=== PATIENT | female | born 1995 | race African-American/Black ===

== ENCOUNTER 2017-11-29 18:10 | Emergency (ER) | payer BC ==
[~2017-11-29] VITALS: Ht 160 cm; Wt 82.7 kg
[2017-11-29 18:22] VITALS: BP 135/75; TEMP 99.7
[2017-11-29 19:07] LABS: COLLECTION METHOD CLEAN CATCH
[2017-11-29 19:07] LABS: BASO % 0.3 % (0.0-2.0); EOS % 0.3 % (0-4.0); GRAN # 6.6 (1.4-6.5); GRAN % 68.6 % (42.2-75.2); HEMATOCRIT 37.7 % (37.0-47.0); HEMOGLOBIN 12.8 g/dl (12.5-16.0); LYMPH # 2.1 (1.2-3.4); LYMPH % 21.9 % (20.0-51.0); MEAN CELL VOLUME 90 fl (80.0-100.0); MEAN CORPUSCULAR HEMOGLOBIN 30 pg (27.0-31.0); MEAN CORPUSCULAR HGB CONC 34 g/dl (33.0-37.0); MEAN PLATELET VOLUME 8.6 fl (7.4-10.4); MONO # 0.8 (0.1-0.6); MONO % 8.6 % (1.7-9.3); PLATELET COUNT 401 K/mm3 (130-400); RED BLOOD COUNT 4.21 M/mm3 (4.10-5.30); REDCELL DISTRIBUTION WIDTH-CV 13.9 % (11.5-14.5)
[2017-11-29 19:12] LABS: PH 6 (5-8); SQUAMOUS EPITHELIAL None Seen /hpf; URINE APPEARANCE Clear; URINE BACTERIA None Seen /hpf; URINE BILIRUBIN Negative (NEGATIVE); URINE BLOOD Negative (NEGATIVE); URINE COLOR Yellow; URINE GLUCOSE Negative (NEGATIVE); URINE KETONE Negative (NEGATIVE); URINE LEUKOCYTE ESTERASE Negative (NEGATIVE); URINE NITRATE Negative (NEGATIVE); URINE PROTEIN(semi-quant) Negative (NEGATIVE); URINE RBC 0-2 /hpf; URINE UROBILINOGEN Negative (NEGATIVE)
[2017-11-29 19:16] LABS: ALBUMIN 4.3 gm/dL (3.5-5.0); BILIRUBIN,TOTAL 0.2 mg/dL (0.0-1.0); CALCIUM 9.5 mg/dL (8.4-10.2); CREATININE, serum 0.81 mg/dL (0.52-1.25); POTASSIUM 3.6 mmol/L (3.4-5.0); TOTAL PROTEIN 8.4 gm/dL (6.4-8.2)
[2017-11-29] MEDS ORDERED: ZITHROMAX TRI-500 MG PO (20:52)
[2017-11-29 21:10] VITALS: PULSE 77
== END 2017-11-29 21:10 | disposition home or self-care (01) ==
LOC: COL.ER 18:10
PROVIDERS: Physician Assistant
DX: R06.02 Shortness of breath (principal)
CPT/HCPCS: Q9967